=== PATIENT | female | born 1985 | race Caucasian/White ===

== ENCOUNTER 2017-07-21 22:00 | Emergency (ER) | payer OTHER ==
--- NOTE | 2017-07-21 22:14 | PHYS DOC ---
Adult General HPI HPI Patient is a 31-year-old female who is approximately 8 weeks presents to the emergency department to for concerns of miscarriage patient has been received by healthcare and was evaluated 2 days ago and there were no concerning findings, an ultrasound was done at the time and showed no concerning findings. Patient was at home sitting down when suddenly she felt like she was bleeding as in a period. Patient did not experience any pain, in the emergency department she feels a little bit of cramps. There is no history of trauma, patient has been in her usual state of health. She did not experience any problems in the first .. Review of Systems Review of Systems Constitutional: Denies fever or chills [] HENT: Denies pain Respiratory: Denies pain Cardiovascular: No pain GI: Yes to abdominal cramps. No vomiting or diarrhea : Denies dysuria or hematuria. Yes to vaginal bleeding Musculoskeletal: Denies back pain or joint pain [] Integument: Denies rash or skin lesions [] Neurologic: Denies headache, focal weakness or sensory changes [] All other systems were reviewed and found to be within normal limits, except as documented in this note. Physical Exam Physical Exam Constitutional: Well developed, well nourished, no acute distress, non-toxic appearance. [] HENT: Normocephalic, atraumatic, bilateral external ears normal, oropharynx moist, no oral exudates, nose normal. [] Eyes:EOMI, conjunctiva normal, no discharge. [] Neck: Normal range of motion, trachea midline, no stridor. [] Cardiovascular:Heart rate regular rhythm, no murmur, equal pulses, normal perfusion Lungs & Thorax: Bilateral breath sounds clear to auscultation, no tachypnea Abdomen: Bowel sounds normal, soft, no tenderness, no masses, no pulsatile masses. [] Skin: Warm, dry, no erythema, no rash. [] Back: No tenderness, no CVA tenderness. [] Extremities: No tenderness,, ROM intact, no edema. [] Neurologic: Alert and oriented X 3, normal motor function,on, no focal deficits noted. [] Psychologic: Affect normal, judgement normal, mood normal. [] EKG EKG [] Radiology/Procedures Radiology/Procedures [] Course & Med Decision Making Course & Med Decision Making Pertinent Labs and Imaging studies reviewed. (See chart for details) Copy of US report given to pt to discuss with her OB MD, she states she already has appointment for sunday. [] Dragon Disclaimer Dragon Disclaimer This electronic medical record was generated, in whole or in part, using a voice recognition dictation system. Departure Departure: Impression: Primary Impression: Threatened in first trimester Disposition: HOME, SELF-CARE Condition: STABLE Patient Instructions: Threatened Miscarriage Additional Instructions: Pelvic rest (no sexual relations) until cleared by your OBGYN. You told us you have a pcp/OBGYN call today for a follow up appointment regarding this ED visit. Carmina SWARTZ MD Jul 21, 2017 22:14
[2017-07-21 22:28] LABS: BASO % 1 % (0-3); EOS # 0.3 x10^3/uL (0.0-0.7); EOS % 3 % (0-3); HEMATOCRIT 34.3 % (36.0-47.0); HEMOGLOBIN 12.2 g/dL (12.0-15.5); LYMPH # 2.5 x10^3/uL (1.0-4.8); LYMPH % 29 % (24-48); MEAN CORPUSCULAR HEMOGLOBIN 33 pg (25-35); MEAN CORPUSCULAR HGB CONC 36 g/dL (31-37); MEAN CORPUSCULAR VOLUME 92 fL (79-100); MONO # 0.8 x10^3/uL (0.0-1.1); MONO % 10 % (0-9); NEUT % 58 % (31-73); PLATELET COUNT 267 x10^3/uL (140-400); RED BLOOD COUNT 3.71 x10^6/uL (3.50-5.40); RED CELL DISTRIBUTION WIDTH 11.9 % (11.5-14.5); WHITE BLOOD COUNT 8.6 x10^3/uL (4.0-11.0)
[2017-07-21 22:36] LABS: CALCIUM 8.8 mg/dL (8.5-10.1); CREATININE 0.9 mg/dL (0.6-1.0); GFR 72.6; POTASSIUM 3.6 mmol/L (3.5-5.1)
--- NOTE | 2017-07-21 23:57 | RAD ---
Obstetrical ultrasound HISTORY: Vaginal bleeding. Pelvic cramping. Symptoms for 2 hours. FINDINGS: Uterus measures 5.7 cm AP by 9.4 cm longitudinal. Gestational sac is identified in the uterus, measuring 4.2 cm x 1.8 cm x 1.7 cm. Yolk sac identified. pole identified. Cardiac activity documented with heart tones 169 bpm. [place]-rump length corresponds with 8 weeks 3 days +/- 5 days. There is an hypoechoic area of tissue adjacent to the gestational sac, would most typically represent a subchorionic hemorrhage. This has a heterogeneous appearance, and measures 2.7 cm long axis. No free fluid is identified. Maternal ovaries are not visualized. IMPRESSION: Single viable intrauterine is identified, with an estimated sonographic age of 8 weeks 3 days and an estimated due date of 02/27/2018. Area of uterine heterogeneity seen adjacent to the gestational sac likely a small subchorionic hemorrhage. Electronically signed by: Saran Morton MD (07/21/2017 11:54 PM) [facility]
[2017-07-22 00:56] VITALS: BP 109/63
== END 2017-07-22 00:56 | disposition home or self-care (01) ==
LOC: ER 22:00
DX: O20.0 Threatened abortion (principal); Z3A.08 8 weeks gestation of pregnancy
CPT/HCPCS: 36415; 76805; 76817; 80048; 84702; 85025; 86901; 99285-25